=== PATIENT | female | born 1970 | race Caucasian/White ===

== ENCOUNTER 2020-09-19 17:09 | Emergency (ER) | payer BC, SELFPAY ==
--- NOTE | 2020-09-19 17:19 | ED.EYEPROB ---
HPI - Eye Problem General Chief complaint: Eye Problems Stated complaint: red eyes Time Seen by Provider: 09/19/20 17:19 Source: patient and RN notes reviewed History of Present Illness HPI Narrative: Patient is a 50-year-old female who presents the urgent care with complaints of red irritated eyes. Patient states that she woke up with the eye redness today and has not done anything [id number] for her symptoms. Patient does take a daily antihistamine and took that as normal but denies of any use of Benadryl or eyedrops. Patient states that she typically does not wear contacts however this past weekend when she was on vacation she did wear her contacts and they had weird water where she was at . Patient states she did wash her hands prior to inserting the contacts. Patient has not been wearing the contacts since this past week and when she came home. Denies of any injuries to the eye or new eyedrops. Denies of any matting or vision changes. No other acute complaints. No acute distress noted. Patient aware of the plan of care. Some parts of this dictation were generated by voice recognition software and may contain typographical and/or grammatical inaccuracies. Related Data Home Medications Medication Instructions Recorded Confirmed duloxetine mg PO 09/19/20 estradiol VAGINAL 09/19/20 oxybutynin chloride mg PO 09/19/20 Allergies Allergy/AdvReac Type Severity Reaction Status Date / Time Penicillins Allergy Hives Verified 09/19/20 17:25 Review of Systems Review of Systems: Narrative: CONSTITUTIONAL: Denies fever, chills, or sweats. EYES: Denies visual changes, discharge. Reports of bilateral eye irritation/redness ENT: Denies rhinorrhea, congestion, sore throat, or otalgia. CARDIOVASCULAR: Denies chest pain, palpitations, or edema. RESPIRATORY: Denies cough or dyspnea. GASTROINTESTINAL: Denies abdominal pain, nausea, vomiting, or diarrhea. GENITOURINARY: Denies dysuria or hematuria. SKIN: Denies rash or itching. MUSCULOSKELETAL: Denies back pain, joint pain, or myalgia. NEUROLOGIC: Denies headache, numbness, or weakness. All other systems reviewed are negative, except as documented in HPI. PMFSH Comments At the time of my signature, I reviewed and agree with the nursing past medical, surgical, social, and family history. There is no relevant family history pertinent to the patient complaint. Exam Narrative: Exam Narrative: GENERAL: This is a well-nourished, well-developed patient, in no apparent distress. HEAD: normocephalic, atraumatic. EYES: PERRL. Sclera clear/white. Vision is grossly intact. Very mild injected conjunctivo without matting or tearing. No foreign body visualized. No injury visualized. No hordeolum noted. EARS: External ears normal NOSE: External nose normal with no obvious nasal discharge, nares without redness, no rhinorrhea. THROAT: Mucous membranes moist NECK: Neck supple CARDIOVASCULAR: Regular rate and rhythm without murmurs, gallops, or rubs. RESPIRATORY: Clear to auscultation. Breath sounds equal bilaterally. No wheezes, rales, or rhonchi. SKIN: warm, intact with no suspicious lesions or rash, good texture and turgor. NEURO: awake, alert, and oriented to person, place and time. There were no obvious focal neurologic abnormalities. EXTREMITIES: No clubbing, cyanosis, or edema. Course Vital Signs Vital signs: Vital Signs Temperature 98.7 F 09/19/20 17:21 Pulse Rate 79 09/19/20 17:21 Respiratory Rate 18 09/19/20 17:21 Blood Pressure 136/90 09/19/20 17:21 Pulse Oximetry 99 09/19/20 17:21 Temperature 98.7 F 09/19/20 17:21 Pulse Rate 79 09/19/20 17:21 Respiratory Rate 18 09/19/20 17:21 Blood Pressure 136/90 09/19/20 17:21 Pulse Oximetry 99 09/19/20 17:21 Reviewed MDM - Eye Problem MDM Narrative Medical decision making narrative: Advised the patient to keep the contacts out of her eyes and throw away the contacts that she was wearing
[2020-09-19 17:21] VITALS: BP 136/90; PULSE 79; RESP 18; TEMP 37.1; O2SAT 99
== END 2020-09-19 17:35 | disposition home or self-care (01) ==
PROVIDERS: Emergency Provider Nurse Practitioner Family
DX: H57.89 Other specified disorders of eye and adnexa (principal); M19.90 Unspecified osteoarthritis, unspecified site
CPT/HCPCS: 99212; G0463